=== PATIENT | male | born 1955 | race African-American/Black ===

== ENCOUNTER 2018-11-02 11:27 | Inpatient (IN) | payer MEDICAID, OTHER ==
[~2018-11-02] VITALS: Ht 167.6 cm; Wt 113.4 kg
[2018-11-02 11:39] VITALS: BP 143/95
--- NOTE | 2018-11-02 11:40 | NUR ---
ED Nurse Note: pt walked in to ED due to continous cp that started about 1 week ago. per pt, had intermittent cp for last 2 yrs. pt appears to be SOB and per pt, "little bit" ambulatory with steady gait. obese noted on abdomen. cp moves around the body. AAO x4. respirations even and non-labored noted. skin warm to touch. no open wound noted. ekg done at the bed side. on youth nutritional monitor. will wait for the further order.
--- NOTE | 2018-11-02 12:00 | Emergency Room Report ---
History of Present Illness General Chief Complaint: Chest Pain Source: Patient, Medical Record Present Illness HPI Patient presents with complaints of bilateral lower chest pain Reports that initially he had discomfort several days ago of the left lower chest cramping in nature Now he feels discomfort intermittently on the right side Denies any vomiting or diarrhea Also reported bilateral flank discomfort and stated that he thinks his kidneys might have problem Denies any fevers or chills denies any recent trauma Allergies: Coded Allergies: No Known Allergies (Unverified , 11/02/18) Patient History Past Medical History: see triage record Pertinent Family History: none Reviewed Nursing Documentation: PMH: Agreed; PSxH: Agreed Nursing Documentation-PMH Past Medical History: No History, Except For Hx Hypertension: Yes Hx COPD: Yes Hx Diabetes: Yes Review of Systems All Other Systems: negative except mentioned in HPI Physical Exam Vital Signs Date Time Temp Pulse Resp B/P (MAP) Pulse Ox O2 Delivery O2 Flow Rate FiO2 11/02/18 11:39 98.8 107 21 143/95 100 Room Air Sp02 EP Interpretation: reviewed, normal General Appearance: well appearing, no apparent distress Head: normocephalic, atraumatic Eyes: bilateral eye PERRL, bilateral eye EOMI ENT: hearing grossly normal, normal pharynx, TMs + canals normal, uvula midline Neck: full range of motion, supple, no meningismus, no bony tend Respiratory: lungs clear, normal breath sounds, no rhonchi, no respiratory distress, no retraction, no accessory muscle use Cardiovascular #1: normal peripheral pulses, regular rate, rhythm, no edema, no gallop, no JVD, no murmur Gastrointestinal: normal bowel sounds, non tender, soft, no mass, no organomegaly, non-distended, no guarding, no hernia, no pulsatile mass, no rebound Genitourinary: no CVA tenderness Musculoskeletal: normal inspection Neurologic: oriented x3, responsive, 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, motor strength/ tone normal, sensory intact Psychiatric: mood/affect normal Skin: normal color, no rash, warm/dry, palpation normal Lymphatic: normal inspection, no adenopathy Medical Decision Making Diagnostic Impression: Primary Impression: ACS (acute coronary syndrome) ER Course Patient is a fairly complex patient with multiple differential to consideration including but not limited to cardiac cardiopulmonary and vascular emergencies Patient does have multiple risk factors concerning for cardiac disease CT imaging shows some pathology regarding possible kidney stone however no obvious obstructive pathology Given the patient's comorbidities and presentation patient is admitted for further care Labs Test 11/02/18 12:10 11/02/18 13:19 White Blood Count 9.8 K/UL (4.8-10.8) Red Blood Count 4.74 M/UL (4.70-6.10) Hemoglobin 15.1 G/DL (14.2-18.0) Hematocrit 45.4 % (42.0-52.0) Mean Corpuscular Volume 96 FL (80-99) Mean Corpuscular Hemoglobin 31.7 PG (27.0-31.0) Mean Corpuscular Hemoglobin Concent 33.2 G/DL (32.0-36.0) Red Cell Distribution Width 12.7 % (11.6-14.8) Platelet Count 296 K/UL (150-450) Mean Platelet Volume 7.8 FL (6.5-10.1) Neutrophils (%) (Auto) 52.7 % (45.0-75.0) Lymphocytes (%) (Auto) 34.2 % (20.0-45.0) Monocytes (%) (Auto) 8.1 % (1.0-10.0) Eosinophils (%) (Auto) 4.1 % (0.0-3.0) Basophils (%) (Auto) 0.9 % (0.0-2.0) Sodium Level 140 MMOL/L (136-145) Potassium Level 4.0 MMOL/L (3.5-5.1) Chloride Level 102 MMOL/L (98-107) Carbon Dioxide Level 29 MMOL/L (21-32) Anion Gap 9 mmol/L (5-15) Blood Urea Nitrogen 13 mg/dL (7-18) Creatinine 1.2 MG/DL (0.55-1.30) Estimat Glomerular Filtration Rate > 60 mL/min (>60) Glucose Level 220 MG/DL (74-106) Calcium Level 9.2 MG/DL (8.5-10.1) Total Bilirubin 0.7 MG/DL (0.2-1.0) Aspartate Amino Transf (AST/SGOT) 16 U/L (15-37) Alanine Aminotransferase (ALT/SGPT) 48 U/L (12-78) Alkaline Phosphatase 91 U/L (46-116) Total Creatine Kinase 165 U/L (26-308) Creatine Kinase MB 1.2 NG/ML (0.0-3.6) Creatine Kinase MB Relative Index 0.7 Troponin I 0.004 ng/mL (0.000-0.056) Total Protein 7.4 G/DL (6.4-8.2) Albumin 4.0 G/DL (3.4-5.0) Globulin 3.4 g/dL Albumin/Globulin Ratio 1.2 (1.0-2.7) Lipase 99 U/L (73-393) Urine Color Yellow Urine Appearance Clear Urine pH 5 (4.5-8.0) Urine Specific [place] 1.025 (1.005-1.035) Urine Protein Negative (NEGATIVE) Urine Glucose (UA) Negative (NEGATIVE) Urine Ketones Negative (NEGATIVE) Urine Blood Negative (NEGATIVE) Urine Nitrite Negative (NEGATIVE) Urine Bilirubin Negative (NEGATIVE) Urine Urobilinogen Normal MG/DL (0.0-1.0) Urine Leukocyte Esterase 1+ (NEGATIVE) Urine RBC 0 /HPF (0 - 0) Urine WBC 0-2 /HPF (0 - 0) Urine Squamous Epithelial Cells Few /LPF (NONE/OCC) Urine Bacteria Occasional /HPF (NONE) Urine Opiates Screen Negative (NEGATIVE) Urine Barbiturates Screen Negative (NEGATIVE) Phencyclidine (PCP) Screen Negative (NEGATIVE) Urine Amphetamines Screen Negative (NEGATIVE) Urine Benzodiazepines Screen Negative (NEGATIVE) Urine Cocaine Screen Negative (NEGATIVE) Urine Marijuana (THC) Screen Positive (NEGATIVE) EKG Diagnostic Results Rate: normal Rhythm: NSR ST Segments: other - nonspecific ST/T-wave changes Rhythm Strip Diag. Results EP Interpretation: yes Rate: 66 Rhythm: NSR, no PVC's, no ectopy Chest X-Ray Diagnostic Results Chest X-Ray Diagnostic Results : Chest X-Ray Ordered: Yes # of Views/Limited/Complete: 1 View Indication: Chest Pain EP Interpretation: Yes Interpretation: no consolidation, no effusion, no pneumothorax Impression: No acute disease Electronically Signed by: Reshma St DO CT/MRI/US Diagnostic Results CT/MRI/US Diagnostic Results : Impression CT abdomen pelvisIMPRESSION: Nonobstructive stone demonstrated within the left renal pelvis injuring 7 mm. Nonobstructive stone in the lower pole calyx left kidney measuring 1 mm. Mild dilatation of the left renal pelvis and calyces with abrupt transition at the UPJ. This is either a extrarenal pelvis or a mild UPJ obstruction. A follow-up nuclear medicine renal scan may be helpful to assess for presence of functional obstruction, if present at all. Fatty liver Atherosclerotic vascular disease Small bilateral inguinal hernias containing fat. Degenerative disc disease at L5-S1 Last Vital Signs Date Time Temp Pulse Resp B/P (MAP) Pulse Ox O2 Delivery O2 Flow Rate FiO2 11/02/18 11:39 98.8 107 21 143/95 100 Room Air Status: improved Disposition: ADMITTED INPATIENT Condition: Serious NavdeepankitReshma DO Nov 02, 2018 12:00
[2018-11-02] MEDS ORDERED: METFORMIN HCL850 M1 ORAL (12:03)
[2018-11-02] MEDS ORDERED: SIMVASTATIN20 MG ORAL (12:03)
[2018-11-02] MEDS ORDERED: HYDROCHLOROTHIA25 MG ORAL (12:03)
[2018-11-02] MEDS ORDERED: QUETIAPINE FUMA50 MG ORAL (12:03)
[2018-11-02] MEDS ORDERED: ZANTAC150 MG ORAL (12:03)
[2018-11-02] MEDS ORDERED: LOSARTAN POTASS50 MG ORAL (12:03)
[2018-11-02] MEDS ORDERED: AMLODIPINE BESY10 MG ORAL (12:03)
[2018-11-02 12:18] LABS: BASOPHILS % (AUTO) 0.9 % (0.0-2.0); EOSINOPHILS % (AUTO) 4.1 % (0.0-3.0); HEMATOCRIT 45.4 % (42.0-52.0); HEMOGLOBIN 15.1 G/DL (14.2-18.0); LYMPHOCYTES % (AUTO) 34.2 % (20.0-45.0); MEAN CORPUSCULAR VOLUME 96 FL (80-99); MONOCYTES % (AUTO) 8.1 % (1.0-10.0); NEUTROPHILS % (AUTO) 52.7 % (45.0-75.0); PLATELET COUNT 296 K/UL (150-450); RED BLOOD COUNT 4.74 M/UL (4.70-6.10); RED CELL DISTRIBUTION WIDTH 12.7 % (11.6-14.8); WHITE BLOOD COUNT 9.8 K/UL (4.8-10.8)
[2018-11-02 12:30] LABS: ANION GAP 9 mmol/L (5-15); BLOOD UREA NITROGEN 13 mg/dL (7-18); CALCIUM 9.2 MG/DL (8.5-10.1); CARBON DIOXIDE 29 MMOL/L (21-32); CHLORIDE 102 MMOL/L (98-107); CREATININE 1.2 MG/DL (0.55-1.30); SODIUM 140 MMOL/L (136-145)
[2018-11-02 12:45] LABS: ALANINE AMINOTRANSFERASE 48 U/L (12-78); ALBUMIN/GLOBULIN RATIO 1.2 (1.0-2.7); ALKALINE PHOSPHATASE 91 U/L (46-116); ASPARTATE AMINO TRANSFERASE 16 U/L (15-37); BILIRUBIN,TOTAL 0.7 MG/DL (0.2-1.0); CKMB 1.2 NG/ML (0.0-3.6); CREATINE KINASE 165 U/L (26-308)
[2018-11-02 13:16] VITALS: BP 136/95
--- NOTE | 2018-11-02 13:17 | NUR ---
ED Nurse Note: urine sample sent. pt lying in bed comfortably. no facial grimacing or moaning noted. denies any pain at this time. on pvc monitor. will wait for the room to be assign.
--- NOTE | 2018-11-02 13:26 | Diagnostic Imaging Report ---
Indication: Abdominal pain Technique: Continuous helical transaxial imaging of the abdomen and pelvis was obtained from the lung bases to the pubic symphysis. No intravenous contrast was administered. Coronal 2-D reformats were also obtained. Automatic Exposure Control was utilized. Total Dose length Product (DLP): 907.[address] Dose Index Volume (CTDIvol): 16.82 mGy Comparison: none Findings: There is a trace pericardial fluid versus pericardial thickening present. Mild dependent posterior basal atelectasis noted. The liver is hypodense consistent with fatty infiltration. Gallbladder is unremarkable. There is an 8 mm nonobstructive stone demonstrated within the dependent portion of the left renal pelvis. There is minimal left hydronephrosis with a transition at the left UPJ without an obstructing stone at the UPJ. The 8 mm stone is more proximal to it and a nonobstructing location in the dependent portion of the renal pelvis. The transition at the UPJ may be incidental or congenital. There is no cortical atrophy associated with this, which is generally seen if there is chronic functional obstruction. There is a 1 mm stone in the lower pole calyx of the left kidney. There are no stones in the right kidney. Urinary bladder is unremarkable. There are bilateral inguinal hernias containing fat. The appendix is normal. Aortoiliac calcifications are present. There is no adrenal mass. There is a small umbilical hernia containing fat. Moderate disc disease at L5-S1 demonstrated with vacuum phenomenon narrowing and endplate osteophytes. Lower lumbar facet hypertrophy also noted. IMPRESSION: Nonobstructive stone demonstrated within the left renal pelvis injuring 7 mm. Nonobstructive stone in the lower pole calyx left kidney measuring 1 mm. Mild dilatation of the left renal pelvis and calyces with abrupt transition at the UPJ. This is either a extrarenal pelvis or a mild UPJ obstruction. A follow-up nuclear medicine renal scan may be helpful to assess for presence of functional obstruction, if present at all. Fatty liver Atherosclerotic vascular disease Small bilateral inguinal hernias containing fat. Degenerative disc disease at L5-S1 The CT scanner at [facility] is accredited by the [employer] and the scans are performed using dose optimization techniques as appropriate to a performed exam including Automatic Exposure control.
[2018-11-02 13:27] LABS: APPEARANCE,URINE CLEAR; BILIRUBIN, URINE NEGATIVE (NEGATIVE); GLUCOSE, URINE (UA) NEGATIVE (NEGATIVE); KETONES,URINE NEGATIVE (NEGATIVE); LEUKOCYTE ESTERASE ,URINE 1+ (NEGATIVE); NITRITE,URINE NEGATIVE (NEGATIVE); PH,URINE 5 (4.5-8.0); PROTEIN,URINE NEGATIVE (NEGATIVE); UROBILINOGEN,URINE NORMAL MG/DL (0.0-1.0)
[2018-11-02 13:36] LABS: COLOR,URINE YELLOW
--- NOTE | 2018-11-02 13:39 | Diagnostic Imaging Report ---
Indication: Chest pain Comparison: None A single view chest radiograph was obtained. Findings: Cardiomediastinal appearance is within normal limits for age. The lungs are clear. Pulmonary vascularity is appropriate. The diaphragmatic contour is smooth and costophrenic angles are sharp. No pleural effusions are identified. The bones are unremarkable. Impression: No acute findings
--- NOTE | 2018-11-02 15:23 | NUR ---
ED Nurse Note: Reports given to BASIL James.
--- NOTE | 2018-11-02 15:30 | NUR ---
NURSE NOTES: Received patient from ER from BASIL Bearden. Patient is AAO x4. heart monitor and v/s taken. Patient is breathing even and unlabored on RA. Patient states 1-2/10 pain for lower back. Patient denies chest pain. Will continue plan of care.
[2018-11-02] MEDS ORDERED: Nitroglycerin Subl 0.4mg tab SL PRN (15:45)
[2018-11-02 16:00] VITALS: BP 138/76
[2018-11-02] MEDS: Aspirin EC 81mg tab ORAL SCH (17:43)
[2018-11-02] MEDS: Heparin 5000 units/ml inj SUBQ SCH ×2 (17:46→20:55)
--- NOTE | 2018-11-02 19:50 | NUR ---
HAND-OFF: Report given to BASIL Marley. Patient denies pain at this time and resting comfortably in bed.
--- NOTE | 2018-11-02 19:51 | NUR ---
NURSE NOTES: Received report from BASIL James. Pt is awake and resting in bed. IV site intact and patent. Bed in lowest position, call light within reach. Will continue with plan of care.
[2018-11-02 20:00] VITALS: BP 110/88
--- NOTE | 2018-11-02 20:13 | NUR ---
CASE MANAGEMENT: REVIEW 62/M BIBA FROM HOME CC: CHEST PAIN SI: ACS . CHEST PAIN T 98.8 HR 107 RR 11 BP 143/95 SAT 100% ROOM AIR TROPONIN I 0.004 IS: PO X1 PATIENT ADMITTED TO TELEMETRY UNIT DCP: PATIENT IS FROM HOME
[2018-11-02] MEDS: NovoLOG Insulin Flexpen SUBQ SCH (20:55)
[2018-11-03] VITALS: BP 128/69
[2018-11-03 04:00] VITALS: BP 125/91
--- NOTE | 2018-11-03 06:00 | History and Physical Report ---
DATE OF ADMISSION: 11/02/2018 CHIEF COMPLAINT: Chest pain. HISTORY OF PRESENT ILLNESS: This is a pleasant 62-year-old male. He has a history of hypertensive heart disease, diabetes, and hyperlipidemia. He presented with complaints of intermittent chest pain for the last 6 months. According to the patient, he was normally getting episodes every week. The episodes last a few minutes. He describes his pain as sharp lasting several minutes on both sides of his chest. In the past, he was taking Gas-X, which seemed to relieve some of the pain. Symptoms now become more frequent and more severe and were unrelieved with Gas-X. So, he presented to the emergency room. On evaluation there, he was slightly tachycardic. Initial enzymes were negative. EKG also was unremarkable. Chest x-ray is clear. In light of the patient's multiple cardiac risk factors, he is now admitted for further evaluation of his chest pain. PAST MEDICAL HISTORY: As above. PAST SURGICAL HISTORY: Includes a surgery for a perforated bowel as a child. CURRENT MEDICATIONS: Reconciled and reviewed. ALLERGIES: None. FAMILY HISTORY: Significant for brother who of heart disease in his 50s. SOCIAL HISTORY: The patient has a 4 to 5 pack-year history of smoking, but quit a year ago. No alcohol. No drugs. REVIEW OF SYSTEMS: GENERAL: No fevers or chills. HEENT: No headaches or visual changes. CARDIOPULMONARY: Positive chest pain. No shortness of breath. GASTROINTESTINAL: No nausea or vomiting. GENITOURINARY: No urgency or frequency. MUSCULOSKELETAL: No joint pain or swelling. No evidence of seizures. PHYSICAL EXAMINATION: VITAL SIGNS: Temperature 98, pulse 107, respirations 11, and blood pressure 138/76. GENERAL: The patient is well-developed, in no apparent distress. HEART: Regular rate and rhythm. LUNGS: Clear. ABDOMEN: Soft, nontender, and nondistended. EXTREMITIES: Without clubbing, cyanosis, or edema. LABORATORY DATA: White count 9, hemoglobin 15, hematocrit 45, and platelets 296,000. Sodium 140, potassium 4.1, chloride 102, bicarb 29, BUN 13, and creatinine is 1.2. UA was clear. CT scan of the abdomen did show a kidney stone in the renal pelvis and a mild dilation of the left renal pelvis. ASSESSMENT: This is a pleasant male admitted with complaints of chest pain. 1. Chest pain, atypical. Although, the patient does have multiple cardiac risk factors including a family history, the patient has a history of hypertension, diabetes, and hyperlipidemia. PLAN: 1. Serial enzymes and EKGs. 2. Titrate antihypertensive regimen. 3. Cardiology evaluation. 4. Check a duplex of the legs. 5. We will start the patient on a PPI for acid reflux. 6. Urology consultation regarding the patient's mild dilation of his renal pelvis. Lewis George M.D. DR: JOSELYN JOB#: [id number] CC:
[2018-11-03] MEDS: NovoLOG Insulin Flexpen SUBQ SCH ×4 (06:29→20:45)
--- NOTE | 2018-11-03 07:25 | NUR ---
HAND-OFF: Report given to BASIL Holm. Endorsed plan of care.
[2018-11-03 07:37] LABS: ALANINE AMINOTRANSFERASE 38 U/L (12-78); ALBUMIN 3.6 G/DL (3.4-5.0); ALBUMIN/GLOBULIN RATIO 1.2 (1.0-2.7); ALKALINE PHOSPHATASE 82 U/L (46-116); ANION GAP 8 mmol/L (5-15); ASPARTATE AMINO TRANSFERASE 18 U/L (15-37); BILIRUBIN,TOTAL 0.4 MG/DL (0.2-1.0); BLOOD UREA NITROGEN 15 mg/dL (7-18); CARBON DIOXIDE 30 MMOL/L (21-32); CHLORIDE 104 MMOL/L (98-107); CHOLESTEROL 171 MG/DL (< 200); CREATININE 1.2 MG/DL (0.55-1.30); HDL CHOLESTEROL 31 MG/DL (40-60); POTASSIUM 4.4 MMOL/L (3.5-5.1); SODIUM 141 MMOL/L (136-145); TRIGLYCERIDES 246 MG/DL (30-150)
[2018-11-03 08:00] VITALS: BP 124/94
--- NOTE | 2018-11-03 08:00 | NUR ---
NURSE NOTES: Pt awake/alert in bed, breathing easily on room air, denies SOB and denies pain at this time. Vital signs stable with SR @ 103 on monitor. IV access Right a/c, flushed with 10 ml NS and locked. Bed left in low position, side rails up x 2 and call light left near pt's hand.
[2018-11-03] MEDS: Aspirin EC 81mg tab ORAL SCH (09:00)
[2018-11-03] MEDS: Losartan 50mg tab ORAL SCH (09:01)
[2018-11-03] MEDS: Heparin 5000 units/ml inj SUBQ SCH ×2 (09:06→20:44)
--- NOTE | 2018-11-03 09:48 | Physician Query ---
Patient admitted with glucose of 220/214 Diabetes documented in the history and physical. Please specify type as: Type I or Juvenile Type II Poorly controlled Inadequately controlled Out of control Present on Admission: Yes(Y) Clinically Undeterminable(W) No(N) PHYSICIAN QUERY FORM DIABETES MTDD
--- NOTE | 2018-11-03 10:17 | Physician Query ---
--------- THIS DOCUMENT IS A PERMANENT PART OF THE MEDICAL RECORD --------- PLEASE COMPLETE DOCUMENT BEFORE SIGNING Dear Jennifer Huerta Date: ___11/03/2018 ____ [facility] Name: Sary Rodriguez [facility] Phone No.: [phone] Exercise your independent professional judgment when responding to the query. Questions asked do not imply a particular answer is desired or expected. We greatly appreciate your clarification on this issue. CLINICAL DOCUMENTATION STATES: Era with complaints of chest pain, CLINICAL FINDINGS SHOW: CT of abdominal/pelvis- Nonobstructing stone within the left renal pelvis injury 7mm. Nonobstructing stone of lower pole calyx measuring 1mm. Fatty liver, small bilateral inguinal hernia containing fat. Please respond to the following question: Is there a diagnosis specific to these symptoms or values? If so please state below. PHYSICIAN RESPONSE: Condition Present on Admission: [] Yes [] No []Clinically Undeterminable Please also document in your Progress Notes and/or Discharge Summary and indicate if the condition was present on admission. MTDD
[2018-11-03 12:00] VITALS: BP 134/84
--- NOTE | 2018-11-03 13:25 | General Progress Note ---
Assessment/Plan Problem List: (1) ACS (acute coronary syndrome) ICD Codes: I24.9 - Acute ischemic heart disease, unspecified SNOMED: 105067937 Status: stable Assessment/Plan bp rx antiplt check duplex cards eval statin Subjective ROS Limited/Unobtainable: No Constitutional: Reports: no symptoms HEENT: Reports: no symptoms Cardiovascular: Reports: chest pain Respiratory: Reports: no symptoms Gastrointestinal/Abdominal: Reports: no symptoms Genitourinary: Reports: no symptoms Neurologic/Psychiatric: Reports: no symptoms Endocrine: Reports: no symptoms Hematologic/Lymphatic: Reports: no symptoms Allergies: Coded Allergies: No Known Allergies (Unverified , 11/02/18) All Systems: reviewed and negative except above Subjective c/o muscle spasms back. no cp. Objective Last 24 Hour Vital Signs Date Time Temp Pulse Resp B/P (MAP) Pulse Ox O2 Delivery O2 Flow Rate FiO2 11/03/18 12:00 122 11/03/18 12:00 97.3 122 23 134/84 (101) 96 11/03/18 09:01 124/94 11/03/18 09:01 98 124/94 11/03/18 09:00 Room Air 11/03/18 08:00 98.0 106 23 124/94 (104) 95 11/03/18 08:00 98 11/03/18 04:00 97.8 97 22 125/91 (102) 93 11/03/18 04:00 97 11/03/18 00:00 98.3 111 20 128/69 (88) 94 11/03/18 00:00 111 11/02/18 21:00 Room Air 11/02/18 20:00 98.0 107 20 110/88 (95) 95 11/02/18 20:00 107 11/02/18 16:00 97.9 99 16 138/76 (96) 94 11/02/18 15:59 100 11/02/18 15:58 Room Air 11/02/18 15:22 98.0 102 15 126/99 100 Room Air Intake and Output 11/02/18 11/03/18 18:59 06:59 Intake Total 360 ml 240 ml Balance 360 ml 240 ml Intake Oral 360 ml 240 ml # Voids 2 2 Laboratory Tests 11/03/18 06:10: Sodium Level 141, Potassium Level 4.4, Chloride Level 104, Carbon Dioxide Level 30, Anion Gap 8, Blood Urea Nitrogen 15, Creatinine 1.2, Estimat Glomerular Filtration Rate > 60, Glucose Level 214H, Calcium Level 9.0, Total Bilirubin 0.4 , Aspartate Amino Transf (AST/SGOT) 18, Alanine Aminotransferase (ALT/SGPT) 38, Alkaline Phosphatase 82, Troponin I 0.007, Total Protein 6.6, Albumin 3.6, Globulin 3.0, Albumin/Globulin Ratio 1.2, Triglycerides Level 246H, Cholesterol Level 171, LDL Cholesterol 101H, HDL Cholesterol 31L, Cholesterol/HDL Ratio 5.5H , Thyroid Stimulating Hormone (TSH) 1.421 Height (Feet): 5 Height (Inches): 6.00 Weight (Pounds): 250 General Appearance: WD/WN, alert Neck: supple Cardiovascular: normal peripheral pulses, normal rate, regular rhythm Respiratory/Chest: chest wall non-tender, lungs clear, normal breath sounds, no respiratory distress Abdomen: normal bowel sounds, non tender, soft, no organomegaly Edema: no edema noted Arm (L), no edema noted Arm (R), no edema noted Leg (L), no edema noted Leg (R), no edema noted Pedal (L), no edema noted Pedal (R), no edema noted Generalized Lewis George MD Nov 03, 2018 13:25
[2018-11-03] MEDS: Acetaminophen 500mg (ES) tab ORAL PRN (15:55)
[2018-11-03 16:00] VITALS: BP 117/80
[2018-11-03] MEDS ORDERED: Lexiscan 0.4mg/5ml syringe IV SCH (16:45)
[2018-11-03] MEDS: Metoprolol Succinate XL 25mg tab ORAL SCH (17:05)
--- NOTE | 2018-11-03 17:17 | NUR ---
CASE MANAGEMENT: REVIEW SI: ACS . CHEST PAIN T 97.3 HR 122 RR 23 BP 134/84 SAT 96% ROOM AIR TRIGLYCERIDES 246 LDL 101 HDL 31 IS: LEXISCAN IV X1 LIPITOR PO QHS COZAAR PO QD NPO TELEMETRY UNIT STATUS DCP: PATIENT IS FROM HOME
[2018-11-03] MEDS ORDERED: metFORMIN 500mg tab ORAL SCH (18:00)
--- NOTE | 2018-11-03 19:20 | NUR ---
NURSE NOTES: Got report from Mihai RN. Pt in stable condition. Denies any pain. No s/s of distress noted. Pt resting in bed comfortably.n Bed in low and locked position, call light within reach, bedside table within reach. continue to monitor.
[2018-11-03 20:00] VITALS: BP 121/91
[2018-11-03] MEDS: Atorvastatin 20mg tab ORAL SCH (20:42)
--- NOTE | 2018-11-03 23:15 | Progress Note ---
DATE: 11/03/2018 CARDIOLOGY PROGRESS NOTE SUBJECTIVE: The patient notes no chest pain today. He did have discomfort yesterday. He notes back pain today. OBJECTIVE: VITAL SIGNS: Blood pressure 134/84, heart rate 98 to 122, respiratory rate 23, and afebrile. Echocardiogram revealed normal ejection fraction. NECK: Supple. LUNGS: Clear. CARDIAC: Regular rhythm and rate. Normal S1, S2 with no murmur. ABDOMEN: Soft. EXTREMITIES: No edema. Monitor sinus and sinus tachycardia. LABORATORY DATA: Labs notable for troponins negative x2. Total cholesterol 171. Triglyceride 246. TSH 1.4. Glucose 214. IMPRESSION: 1. Acute coronary syndrome. 2. Diabetes mellitus, poorly controlled. 3. Paroxysmal sinus tachycardia. PLAN: 1. Titrate metformin. 2. Titrate antianginals. 3. Continue anti-platelet therapy and statin drug. 4. Add beta-yaw. 5. Myocardial perfusion scan with pharmacological stress to follow. Karl Mehta M.D. DR: DEJA JOB#: [id number] CC:
[2018-11-04] VITALS: BP 125/86
[2018-11-04 04:20] VITALS: BP 135/70
[2018-11-04] MEDS: NovoLOG Insulin Flexpen SUBQ SCH ×4 (06:03→20:53)
--- NOTE | 2018-11-04 07:05 | NUR ---
HAND-OFF: Report given to Abhay GRACIA. Endorsed plan of care.
--- NOTE | 2018-11-04 07:06 | NUR ---
NURSE NOTES: pt awake alert, no distress. no sob. no c/o pain. call light within reach. will monitor.
[2018-11-04 07:52] VITALS: BP 118/81
[2018-11-04] MEDS: Metoprolol Succinate XL 25mg tab ORAL SCH (08:21)
[2018-11-04] MEDS: Losartan 50mg tab ORAL SCH (08:23)
[2018-11-04] MEDS: Aspirin EC 81mg tab ORAL SCH (08:23)
[2018-11-04] MEDS: Heparin 5000 units/ml inj SUBQ SCH ×2 (08:25→20:51)
[2018-11-04] MEDS: metFORMIN 500mg tab ORAL SCH ×2 (08:25→17:13)
[2018-11-04] MEDS: Acetaminophen 500mg (ES) tab ORAL PRN (08:53)
--- NOTE | 2018-11-04 09:01 | NUR ---
NURSE NOTES: pt c/o bilateral flank cramps, tylenol 500mg prn given will monitor effectiveness Dr George made aware of this complaint also pt requested for seroquel to be nightly instead of daily, md webster
[2018-11-04 11:46] VITALS: BP 128/78
[2018-11-04] MEDS: Cyclobenzaprine 10mg Tab ORAL SCH ×2 (14:18→17:13)
--- NOTE | 2018-11-04 15:23 | NUR ---
CASE MANAGEMENT: REVIEW 11/04/2018 SI: ACS. CHEST PAIN. T 97.5 HR 100 RR 18 B/P 128/78 SATS 99% ON RA NO LABS TODAY IS:LIPITOR PO QHS METFORMIN PO BID NORVASC PO QD HCTZ PO QD COZAAR PO QD ASA PO QD METOPROLOL PO QD INSULIN ASPART SUBQ AC/HS TELEMETRY UNIT STATUS DCP: PATIENT IS FROM HOME
[2018-11-04 17:00] VITALS: BP 121/90
--- NOTE | 2018-11-04 18:45 | Progress Note ---
DATE: 11/04/2018 SUBJECTIVE: There have been no overnight events. The patient continues to complain of spasms in his back. Denies any chest pain or shortness of breath. OBJECTIVE: VITAL SIGNS: Temperature 97.5 degrees, pulse 100, respirations 18, and blood pressure 128/78. GENERAL: The patient is no apparent distress. HEART: Regular rate and rhythm. LUNGS: Clear. ABDOMEN: Soft. EXTREMITIES: Without clubbing or cyanosis. LABORATORY DATA: None. ASSESSMENT: This is a pleasant male with history of hypertension, diabetes, hyperlipidemia who presents with complaint of chest pain. Chest pain has now resolved. PLAN: 1. Antiplatelet therapy. 2. Muscle relaxants for back spasm. 3. Check lumbar x-ray. 4. Stress test tomorrow. 5. Discharge planning if stress test is normal. Lewis George M.D. DR: Andreia JOB#: [id number] CC:
--- NOTE | 2018-11-04 19:09 | NUR ---
HAND-OFF: Report given to LUIZ GRACIA.
--- NOTE | 2018-11-04 19:10 | NUR ---
NURSE NOTES: Got report from Abhay GRACIA. Pt in stable condition. Denies any pain. No s/s of distress noted. Pt resting in bed comfortably. Bed in low and locked position, call light within reach, bedside table within reach. continue to monitor. Addendum: 11/05/18 at 0027 by Noé Bustos RN Pt aware that he has to be NPO after midnight for Stress Test procedure on Monday November 05, 2018.
[2018-11-04 20:00] VITALS: BP 137/84
[2018-11-04] MEDS: Atorvastatin 20mg tab ORAL SCH (20:50)
[2018-11-05] VITALS: BP 111/78
--- NOTE | 2018-11-05 04:00 | Progress Note ---
DATE: 11/04/2018 CARDIOLOGY PROGRESS NOTE SUBJECTIVE: The patient has no new complaints other than back pain. No chest pain today. OBJECTIVE: VITAL SIGNS: Afebrile, blood pressure 128/78, pulse 100, and respiratory rate 18. LUNGS: Clear. CARDIAC: Regular. Normal S1 and S2. ABDOMEN: Soft. EXTREMITIES: No edema. IMPRESSION: 1. Anginal syndrome. 2. Hypertension. 3. Paroxysmal tachycardia. 4. Type 2 diabetes mellitus. 5. Hyperlipidemia. PLAN: 1. Continue anti-platelet therapy. 2. Optimize antianginal and antihypertensive regimen in view of risk factors for premature coronary disease and presenting symptoms. 3. Myocardial perfusion scan with Lexiscan stress is planned. Karl Mehta M.D. DR: MITZI JOB#: [id number] CC:
[2018-11-05 04:20] VITALS: BP 110/72
[2018-11-05] MEDS: NovoLOG Insulin Flexpen SUBQ SCH ×3 (06:03→17:31)
[2018-11-05] MEDS ORDERED: Lexiscan 0.4mg/5ml syringe IV PRN (07:00)
--- NOTE | 2018-11-05 07:10 | NUR ---
NURSE NOTES: RECEIVED BED SIDE REPORT FROM [employer]IN [employer] EXCELLENCE LEADER OF NOC SHIFT .PT RECEIVED IN BED RESTING COMFORTABLY DENIES CP OR SOB AT THIS TIME.PT IS NPO SCHEDULE FOR CARDIAC STRESS TEST THIS AM.HELD ALL BETA LUCIO MED,S AT THIS TIME.WILL CONT TO MONITOR.
[2018-11-05 08:00] VITALS: BP 118/81
[2018-11-05] MEDS: Aspirin EC 81mg tab ORAL SCH (09:00)
[2018-11-05] MEDS: Cyclobenzaprine 10mg Tab ORAL SCH ×3 (09:00→18:05)
[2018-11-05] MEDS: metFORMIN 500mg tab ORAL SCH ×2 (10:51→18:05)
[2018-11-05] MEDS: Heparin 5000 units/ml inj SUBQ SCH (10:59)
--- NOTE | 2018-11-05 11:23 | General Progress Note ---
Assessment/Plan Problem List: (1) ACS (acute coronary syndrome) ICD Codes: I24.9 - Acute ischemic heart disease, unspecified SNOMED: [id number] Status: stable, progressing Assessment/Plan bp rx antiplt duplex negative cards eval appreciated statin Subjective ROS Limited/Unobtainable: No Constitutional: Reports: malaise, weakness HEENT: Reports: no symptoms Cardiovascular: Reports: no symptoms Respiratory: Reports: no symptoms Gastrointestinal/Abdominal: Reports: no symptoms Genitourinary: Reports: no symptoms Neurologic/Psychiatric: Reports: no symptoms Endocrine: Reports: no symptoms Hematologic/Lymphatic: Reports: no symptoms Allergies: Coded Allergies: No Known Allergies (Unverified , 11/02/18) All Systems: reviewed and negative except above Subjective c/o muscle spasms back. no chest pain waiting for stress test. Objective Last 24 Hour Vital Signs Date Time Temp Pulse Resp B/P (MAP) Pulse Ox O2 Delivery O2 Flow Rate FiO2 11/05/18 08:00 98.1 104 18 118/81 (93) 95 11/05/18 04:28 101 11/05/18 04:20 98.4 100 16 110/72 (85) 98 11/05/18 00:36 109 11/05/18 00:00 97.5 100 18 111/78 (89) 98 11/04/18 21:00 Room Air 11/04/18 20:49 97.5 11/04/18 20:00 98.0 97 19 137/84 (101) 99 11/04/18 20:00 94 11/04/18 17:00 97.5 97 18 121/90 (100) 99 11/04/18 15:36 98 11/04/18 11:59 98 11/04/18 11:46 97.5 100 18 128/78 (95) 99 Intake and Output 11/04/18 11/05/18 19:00 07:00 Intake Total 720 ml Balance 720 ml Intake Oral 720 ml # Voids 3 2 # Bowel Movements 1 Height (Feet): 5 Height (Inches): 6.00 Weight (Pounds): 250 General Appearance: WD/WN, alert Neck: supple Cardiovascular: normal rate, regular rhythm Respiratory/Chest: chest wall non-tender, lungs clear, normal breath sounds Abdomen: normal bowel sounds, non tender, soft, no organomegaly Edema: no edema noted Arm (L), no edema noted Arm (R), no edema noted Leg (L), no edema noted Leg (R), no edema noted Pedal (L), no edema noted Pedal (R), no edema noted Generalized Lewis George MD Nov 05, 2018 11:23
[2018-11-05 12:00] VITALS: BP 130/99
--- NOTE | 2018-11-05 12:53 | Cardiology Report ---
APPROVED REPORT EKG Measurement Heart [id number] Sinus tachycardia Low voltage QRS Borderline ECG
--- NOTE | 2018-11-05 14:26 | Cardiology Report ---
APPROVED REPORT EXAM: Two-dimensional and M-mode echocardiogram with Doppler and color Doppler. INDICATION Coronart artery disease M-Mode DIMENSIONS Left Atrium (MM)2.9 (1.6-4.0cm) Aortic Root3.5 (2.0-3.7cm) Aortic Cusp Exc.2.0 (1.5-2.0cm) Technically difficult study due to poor acoustic windows. Study quality precludes accurate assessment of regional wall motion. M-mode measurements of left ventricle not obtainable due to cardiac position (angle). Normal left ventricular chamber size, systolic function and wall motion to extent visualized. Left ventricular ejection fraction estimated to be 55 %. There appears to be no evidence of left ventricular hypertrophy. Anterior Echo-free space, may be due to pericardial fat or effusion. All other cardiac chamber sizes are within normal limits. Focal aortic valve sclerosis with adequate cusp excursion. Thickened mitral valve leaflets with normal excursion. Mild mitral annulus and aortic root calcification. Pulmonic valve not well visualized. Normal tricuspid valve structure. IVC is normal in size with physiological collapse. A color flow and spectral Doppler study was performed and revealed: No aortic insufficiency. No mitral regurgitation. Mitral diastolic velocities suggest mild left ventricular diastolic dysfunction (Grade I). No tricuspid regurgitation. Tricuspid systolic velocities suggests peak right ventricular systolic pressure of 8 mmHg. No pulmonic regurgitation present.
[2018-11-05] MEDS: Metoprolol Succinate XL 25mg tab ORAL SCH (14:46)
[2018-11-05] MEDS: Losartan 50mg tab ORAL SCH (14:46)
--- NOTE | 2018-11-05 15:39 | Diagnostic Imaging Report ---
Indications: Chest pain Technique: Single day single isotope protocol utilized. Initially, resting images obtained using IV administration 10.5 millicuries 99M technetium Myoview. Subsequently, patient underwent lexiscan stress testing. See cardiology report for details. During adenosine infusion, IV administration 32.3 mCi 99 M technetium Myoview. SPECT and planar images obtained. SPECT images gated to 8 phases of the cardiac cycle were also obtained, and reformatted into cine images for evaluation of ejection fraction. Comparison: none Findings: Presence or absence of symptoms during infusion is not described and cardiology report. Per cardiology report, resting EKG demonstrates sinus tachycardia with left axis deviation. Presence or absence of ST changes during infusion is not described. Imaging demonstrates normal poststress perfusion. No fixed nor reversible post stress perfusion defects.. Calculated post stress ejection fraction 56%. Gated images demonstrate no evidence of focal wall motion abnormality Impression: Nonischemic clinical response to pharmacologic stress, per cardiology report Nonischemic electrocardiographic response to pharmacologic stress, per cardiology report No imaging findings to suggest ischemia, at level of stress achieved. Calculated post stress ejection fraction 56%
[2018-11-05 16:00] VITALS: BP 129/93
--- NOTE | 2018-11-05 16:22 | Diagnostic Imaging Report ---
Indication: Lower back pain Technique: 4 views of the lumbar spine Comparison: None Findings: There is marked degenerative disc narrowing and proliferative change at L5-S1. There is slight anterior offset of L4-5 on S1. There is vacuum formation. The remaining disc spaces are preserved. The vertebral body heights are preserved. No acute fractures. No dislocations. There is bilateral lower lumbar facet arthrosis. Degenerative changes of the left hip are incidentally noted. The sacral arches are preserved. Sacroiliac joint spaces are preserved Impression: Degenerative changes as described. No acute bony trauma
--- NOTE | 2018-11-05 16:45 | Diagnostic Imaging Report ---
APPROVED REPORT CPT Code: 28020 Present Symptoms Lower Extremity Pain: Bilateral BILATERAL: Imaging reveals a patent deep venous system bilaterally. There is no evidence of thrombus within the femoral, popliteal or tibial segments. The greater saphenous veins are also within normal limits. Doppler indicates normal spontaneous flow within these segments.
--- NOTE | 2018-11-05 18:58 | NUR ---
NURSE NOTES: RECEIVED A TELEPHONE ORDERS FROM DR PERRY TO DISCHARGE PT HOME THIS EVENING,KETAN GRACIA IN CHARGE MADE AWARE AND NOTIFIED.
--- NOTE | 2018-11-05 19:03 | NUR ---
HAND-OFF: Report given to .CHELY GRACIA.
--- NOTE | 2018-11-05 19:07 | NUR ---
NURSE NOTES: Report received from Karli Multani RN. Pt is sitting up at bedside in stable condition. Per Karli Multani, MD Morales and MD George cleared patient for discharge. Regarding d/c medications, MD George received pharmacy information from patient ([facility] & , ) and will send rx for patient to pharmacy. Pt to f/u with MD George as outpatient within 7 days from discharge. Pt is awake, alert, and oriented x4. Pt is on room air and breathing is even and unlabored. No acute distress noted. IV site is R AC #20g and is noted to be asymptomatic, patent, and intact. Bed is in lowest position with brake engaged and side rails up x2. Call light and side table placed within reach. Will continue to monitor and complete discharge assessment.
--- NOTE | 2018-11-05 20:00 | NUR ---
NURSE NOTES: No pharmacy receipt strip in patient chart or with patient in order to picking supervisor patient personal medications from pharmacy. Pharmacist Brandt Strauss notified and aware. RN signed with pharmacist for medication picking supervisor. Medications provided to patient upon discharge. ABRIL Wheat, aware of situation.
--- NOTE | 2018-11-05 20:05 | NUR ---
NURSE NOTES: Pt discharged home via private vehicle per MD George. Pt is in stable condition upon discharge. Pt is awake, alert, and oriented x4. Pt is on room air and breathing is even and unlabored. No acute distress noted. Pt denies pain at this time. Pt independently ambulatory with steady gait. Pt provided packet and discharge instructions upon discharge. Belongings list checked and signed with patient at bedside. Pt sent home with $121 (6 x $20, 1 x $1) in luz, counted with patient and witnessed by BASIL Baig at bedside. monitoring analyst, IV site, and ID band removed. Pt advised to f/u with primary MD within 1 week of discharge and call 911 or go to nearest emergency room if symptoms reoccur or if they experience new onset of symptoms. Pt verbalized understanding. Pt escorted to private vehicle by this RN.
--- NOTE | 2018-11-06 02:00 | Progress Note ---
DATE: 11/05/2018 CARDIOLOGY PROGRESS NOTE SUBJECTIVE: The patient has no new complaints. Completed myocardial perfusion scan with Lexiscan stress and was negative for ischemia with normal ejection fraction noted. OBJECTIVE: VITAL SIGNS: Blood pressure range 118/81 to 130/99 and heart rate 97 to 114. LUNGS: Clear. CARDIAC: Regular. ABDOMEN: Soft. EXTREMITIES: No edema. IMPRESSION: 1. Hypertensive heart disease. 2. No evidence of flow-limiting coronary artery disease. 3. Secondary sinus tachycardia. 4. Psych disorder. 5. Type 2 diabetes mellitus. PLAN: 1. Discontinue thiazide diuretic. 2. Advance beta-yaw and losartan. 3. Remainder of cardiovascular regimen without change including low-dose aspirin and statin drugs. Karl Mehta M.D. DR: LEONOR JOB#: [id number] CC:
[2018-11-06] MEDS ORDERED: Losartan 50mg tab ORAL SCH (09:00)
[2018-11-06] MEDS ORDERED: Metoprolol Succinate XL 50mg tab ORAL SCH (09:00)
--- NOTE | 2018-11-07 03:15 | Consultation ---
DATE OF CONSULTATION: 11/02/2018 CARDIOLOGY CONSULTATION CONSULTING PHYSICIAN: Karl Mehta M.D. REQUESTING PHYSICIAN: Lewis George M.D. REASON FOR CONSULTATION: Chest pain. HISTORY OF PRESENT ILLNESS: This is a 62-year-old male with multiple risk factors for premature and accelerated atherosclerosis. He presented to the hospital with intermittent chest pain for the last six months. It is unclear why he presented to the hospital specifically today rather than description of a more severe episode than usual. The pain is on both sides of his chest and "taking his breath away." The patient noted some relief in the past with Gas-X, but not today. The patient was seen in the emergency room. His initial troponin level was negative. His EKG revealed sinus tachycardia with low voltage. PAST MEDICAL HISTORY: History of abdominal surgery for perforated bowel, hypertension, type 2 diabetes mellitus, hyperlipidemia, and chronic obstructive pulmonary disease. CURRENT MEDICATIONS: Reviewed and reconciled. ALLERGIES: None known. SOCIAL HISTORY: No alcohol. No substance abuse. Positive smoking history. Recently quit. FAMILY HISTORY: Father at age 50s of a heart attack. REVIEW OF SYSTEMS: A 10-point review of systems performed all systems negative other than noted above. PHYSICAL EXAMINATION: VITAL SIGNS: Blood pressure 138/76, pulse 107, respirations 12, and afebrile. HEENT: Conjunctivae are pink. Oropharynx clear. NECK: Supple. No bruits. Jugular venous pressure normal. LUNGS: Clear. CARDIAC: Regular rhythm. Rapid rate. Normal S1, S2 with no murmur, rub, or gallop. ABDOMEN: Soft and nontender. No guarding or rebound. EXTREMITIES: Good pulses. No edema. LABORATORY AND DIAGNOSTIC DATA: Laboratories reviewed. A CAT scan notable for kidney stone on the left. IMPRESSION: 1. Possible acute coronary syndrome in the setting of multiple risk factors (at least four) for premature and accelerated coronary artery disease. 2. Hypertensive heart disease. 3. Sinus tachycardia. 4. Type 2 diabetes mellitus. 5. History of hyperlipidemia. 6. Nephrolithiasis. PLAN: 1. Cardiac monitoring. 2. Anti-platelet therapy. 3. Beta-blockade. 4. Titration of antianginal drugs. 5. Check lipid panel. 6. Serial troponin levels. 7. He will likely need noninvasive assessment of coronary flow reserve. Karl Corie Mehta DR: LEONOR JOB#: [id number] CC:
--- NOTE | 2018-11-10 13:40 | NUR ---
CASE MANAGEMENT: CM review and clinical information (face sheet/ DC summary/ ER MD notes/ H&P) faxed to [facility] @ [phone] and [facility] @ [phone]. REF# [id number]
--- NOTE | 2018-11-15 13:22 | Discharge Summary ---
Discharge Summary Discharge Summary _ DATE OF ADMISSION: 11/02/2018 DATE OF DISCHARGE: 11/05/2018 DISCHARGED BY: Dr. Lewis George CONSULTANTS: Dr. Karl Mehta BRIEF HOSPITAL COURSE: Patient is a 62-year-old male, with history of hypertensive heart disease, diabetes and hyperlipidemia. He presented with complaints of intermittent chest pain for the last 6 months. According to the patient, he was normally getting episodes every week. The recent episode lasted a few minutes. Pain was sharp and lasted several minutes and radiated to both sides of the chest. In the past, he was taking Gas-X, which seemed to relieve the pain. Symptoms however became more frequent and more severe and was unrelieved with Gas-X. He then presented to ER for further evaluation. On evaluation at ED, patient was slightly tachycardic. Blood work did not show any leukocytosis. Hemoglobin and hematocrit were stable. Initial cardiac enzyme negative. Urinalysis negative. Urine drug screen was positive for marijuana. EKG was unremarkable. Chest x-ray negative. CT of the abdomen and pelvis showed a nonobstructive stone in the left renal pelvis and lower pole calyx. In light of patient's multiple cardiac risk factors, he was admitted for evaluation of chest pain. Cardiac evaluation was done. He was given antiplatelet therapy and statin. TSH was normal. LDL 101. Total cholesterol 171. Cardiac enzymes were monitored. He was given beta-yaw. Echocardiogram showed ejection fraction 55%. Venous duplex scan was negative for acute DVT. Blood glucose was monitored. He was given metformin 1000 mg twice daily. Complaint of back spasms. He was given muscle relaxants. Lumbar spine x-ray did not show any dislocation or acute fractures. He completed a Lexiscan myocardial perfusion scan. Results were negative for ischemia and had normal ejection fraction. There was no evidence of flow- limiting coronary artery disease. Thiazide diuretic was discontinued. He was advised to continue low-dose aspirin and statin. Continue with beta-yaw and losartan. He was eventually discharged home. FINAL DIAGNOSES: Chest pain with anginal syndrome No evidence of flow-limiting coronary artery disease Hypertensive heart disease Secondary sinus tachycardia Type 2 diabetes mellitus Hyperlipidemia Nonobstructive left kidney stone DISPOSITION: Patient was discharged home. DISCHARGE INSTRUCTIONS: Follow-up in a week. I have been assigned to complete a discharge summary on this account, I was not involved with the patient's management. Jenny Kelsey [employer]PORATE LICENSED BROKER Nov 15, 2018 13:22
== END 2018-11-05 20:05 | disposition home or self-care (01) | DRG 198 ==
LOC: EMR 12:02 → 2E 14:20 → EDBEDREQ 14:44
DX: I20.9 Angina pectoris, unspecified (principal); E11.65 Type 2 diabetes mellitus with hyperglycemia; I11.9 Hypertensive heart disease without heart failure; Z87.891 Personal history of nicotine dependence; E78.5 Hyperlipidemia, unspecified; E11.9 Type 2 diabetes mellitus without complications; I47.9 Paroxysmal tachycardia, unspecified; N20.0 Calculus of kidney; R00.0 Tachycardia, unspecified; Z68.41 Body mass index [BMI] 40.0-44.9, adult
CPT/HCPCS: 36415; 71045; 72110; 74176; 78452; 80053; 80061; 80307; 81003; 82550; 82553; 82962; 83690; 84443; 84484; 85025; 93005; 93017; 93306; 93970; 99285; J1815; J2785

== ENCOUNTER 2020-01-25 08:14 | Emergency (ER) | payer MEDICAID ==
[~2020-01-25] VITALS: Ht 167.6 cm; Wt 105.2 kg
[2020-01-25 08:14] VITALS: BP 140/93
[~2020-01-25 08:14] MED LIST: AMLODIPINE BESY10 MG ORAL; HYDROCHLOROTHIA25 MG ORAL; LOSARTAN POTASS50 MG ORAL; METFORMIN HCL850 M1 ORAL; QUETIAPINE FUMA50 MG ORAL; SIMVASTATIN20 MG ORAL; ZANTAC150 MG ORAL
--- NOTE | 2020-01-25 08:21 | Emergency Room Report ---
History of Present Illness General Chief Complaint: Back Pain-No Injury Source: Patient, EMS Present Illness HPI Patient is a 64-year-old male past medical history of obesity, COPD former smoker, diabetes and hypertension who presents to the ER complaining of left- sided flank pain. Patient states the pain began 3 days ago and was associated with hematuria which is now resolved. Patient denies any fever, chills, nausea , vomiting, diarrhea or constipation. No history of kidney stones. Patient states that he has an appointment with his doctor in 3 days but wanted to be checked out because of the persistent pain. Patient was brought in by EMS. Allergies: Coded Allergies: No Known Allergies (Unverified , 11/02/18) COVID-19 Screening Contact w/high risk pt: No Recent Travel to affected area: No Experienced COVID-19 symptoms?: No COVID-19 Testing performed EXECUTIVE DIRECTOR OF MARKETING: No Patient History Reviewed Nursing Documentation: PMH: Agreed; PSxH: Agreed Nursing Documentation-PMH Past Medical History: No History, Except For Hx Cardiac Problems: Yes Hx Hypertension: Yes Hx COPD: Yes Hx Diabetes: Yes Hx Cancer: No Hx Memory Loss: Yes Hx Headaches: Yes Hx Fatigue: Yes Review of Systems All Other Systems: negative except mentioned in HPI Physical Exam Sp02 EP Interpretation: reviewed, normal General Appearance: no apparent distress, alert, GCS 15, non-toxic Head: normocephalic, atraumatic Eyes: bilateral eye normal inspection, bilateral eye PERRL ENT: hearing grossly normal, normal pharynx, no angioedema, normal voice Neck: full range of motion, supple/symm/no masses Respiratory: chest non-tender, lungs clear, normal breath sounds, speaking full sentences Cardiovascular #1: regular rate, rhythm, no edema Gastrointestinal: normal bowel sounds, non tender, soft, non-distended, no guarding, no rebound, overweight Rectal: deferred Genitourinary: CVA tenderness (L) Musculoskeletal: back normal, normal range of motion, no calf tenderness Neurologic: alert, motor strength/tone normal, oriented x3, sensory intact, responsive, speech normal Psychiatric: no suicidal/homicidal ideation Skin: no rash Lymphatic: no adenopathy Medical Decision Making Diagnostic Impression: Primary Impression: Lymphadenopathy Additional Impression: Kidney stone ER Course Patient's labs demonstrate no significant acute abnormalities except for blood in his urine. CT demonstrates significant new lymphadenopathy. 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 I told the patient about his lymphadenopathy and told that he needs to get a referral for an oncologist for possible lymphoma or metastatic disease. I also wrote this on his discharge papers and gave him a copy of his CAT scan results. Patient demonstrated understanding. After discussing risks and benefits of further diagnostics, treatment plans, as well as indications for and risks of admission , the patient is agreeable to being discharged home. I have explained that their evaluation and treatment in the emergency department today is an important step towards them achieving better health but that their evaluation today is not intended to replace further evaluation and treatment by a physician in their local clinic. I have explained that while the current findings suggest no immediate life threatening emergency they will require further evaluation and treatment by a physician of their choice in their area. They understand that it will be necessary for them to review the final reports of their ED visit with their clinic physician. We have reviewed indications for return to the Emergency Department. I have explained that additional time may need to pass and/or additional testing as an outpatient may be necessary before a definitive diagnosis can be made. They tell me they are willing to follow up as instructed within the timeframe I recommend. They appear to understand what we discussed. Additionally they understand that if they are unable to be seen by an outpatient physician they are welcome, and in fact should, return to the Emergency Department for a repeat evaluation. The patient is stable at time of discharge. Laboratory Tests Test 01/25/20 08:20 White Blood Count 10.4 K/UL (4.8-10.8) Red Blood Count 5.12 M/UL (4.70-6.10) Hemoglobin 15.6 G/DL (14.2-18.0) Hematocrit 50.0 % (42.0-52.0) Mean Corpuscular Volume 98 FL (80-99) Mean Corpuscular Hemoglobin 30.5 PG (27.0-31.0) Mean Corpuscular Hemoglobin Concent 31.3 G/DL (32.0-36.0) L Red Cell Distribution Width 13.2 % (11.6-14.8) Platelet Count 332 K/UL (150-450) Mean Platelet Volume 7.6 FL (6.5-10.1) Neutrophils (%) (Auto) 56.4 % (45.0-75.0) Lymphocytes (%) (Auto) 29.8 % (20.0-45.0) Monocytes (%) (Auto) 9.4 % (1.0-10.0) Eosinophils (%) (Auto) 3.1 % (0.0-3.0) H Basophils (%) (Auto) 1.3 % (0.0-2.0) Prothrombin Time 10.3 SEC (9.30-11.50) Prothrombin Time INR 0.9 (0.9-1.1) Activated Partial Thromboplast Time 29 SEC (23-33) Urine Color Yellow Urine Appearance Clear Urine pH 6 (4.5-8.0) Urine Specific [place] 1.015 (1.005-1.035) Urine Protein 3+ (NEGATIVE) H Urine Glucose (UA) Negative (NEGATIVE) Urine Ketones 2+ (NEGATIVE) H Urine Blood 5+ (NEGATIVE) H Urine Nitrite Negative (NEGATIVE) Urine Bilirubin Negative (NEGATIVE) Urine Urobilinogen Normal MG/DL (0.0-1.0) Urine Leukocyte Esterase 1+ (NEGATIVE) H Urine RBC Tntc /HPF (0 - 0) H Urine WBC 2-4 /HPF (0 - 0) Urine Squamous Epithelial Cells Occasional /LPF Urine Bacteria Occasional /HPF (NONE) Sodium Level 137 MMOL/L (136-145) Potassium Level 3.9 MMOL/L (3.5-5.1) Chloride Level 100 MMOL/L (98-107) Carbon Dioxide Level 28 MMOL/L (21-32) Anion Gap 9 mmol/L (5-15) Blood Urea Nitrogen 12 mg/dL (7-18) Creatinine 1.3 MG/DL (0.55-1.30) Estimated Glomerular Filtration Rate > 60 mL/min (>60) Glucose Level 143 MG/DL (74-106) H Calcium Level 8.9 MG/DL (8.5-10.1) Total Bilirubin 0.4 MG/DL (0.2-1.0) Aspartate Amino Transferase (AST) 23 U/L (15-37) Alanine Aminotransferase (ALT) 19 U/L (12-78) Alkaline Phosphatase 98 U/L (46-116) Total Protein 7.9 G/DL (6.4-8.2) Albumin 3.8 G/DL (3.4-5.0) Globulin 4.1 g/dL Albumin/Globulin Ratio 0.9 (1.0-2.7) L Lipase 226 U/L (73-393) Disposition: HOME, SELF-CARE Condition: Stable Scripts Hydrocodone Bit/Acetaminophen 5-325* (NORCO 5-325 TABLET*) 1 Each Tablet 1 TAB ORAL Q6H PRN for FOR PAIN, #12 TAB 0 Refills Prov: Jayashree Caceres M.D. 01/25/20 Additional Instructions: The patient was provided with discharge instructions, notified to follow-up with a primary care doctor and or specialist in the next 24-48 hours, and to return to the ED if they have worsening of their symptoms. Please note that this report is being documented using [employer] technology. This can lead to erroneous entry secondary to incorrect interpretation by the dictating instrument. Jayashree Caceres M.D. Jan 25, 2020 08:21
[2020-01-25] MEDS ORDERED: Ketorolac 30mg Inj IV ONE (08:30)
[2020-01-25 08:54] LABS: APPEARANCE,URINE CLEAR; BILIRUBIN, URINE NEGATIVE (NEGATIVE); GLUCOSE, URINE (UA) NEGATIVE (NEGATIVE); KETONES,URINE 2+ (NEGATIVE); LEUKOCYTE ESTERASE ,URINE 1+ (NEGATIVE); NITRITE,URINE NEGATIVE (NEGATIVE); PH,URINE 6 (4.5-8.0); PROTEIN,URINE 3+ (NEGATIVE); UROBILINOGEN,URINE NORMAL MG/DL (0.0-1.0)
[2020-01-25 08:58] LABS: INR 0.9 (0.9-1.1)
[2020-01-25 09:01] LABS: ALANINE AMINOTRANSFERASE 19 U/L (12-78); ALBUMIN 3.8 G/DL (3.4-5.0); ALBUMIN/GLOBULIN RATIO 0.9 (1.0-2.7); ALKALINE PHOSPHATASE 98 U/L (46-116); ANION GAP 9 mmol/L (5-15); ASPARTATE AMINO TRANSFERASE 23 U/L (15-37); BILIRUBIN,TOTAL 0.4 MG/DL (0.2-1.0); BLOOD UREA NITROGEN 12 mg/dL (7-18); CALCIUM 8.9 MG/DL (8.5-10.1); CARBON DIOXIDE 28 MMOL/L (21-32); CHLORIDE 100 MMOL/L (98-107); CREATININE 1.3 MG/DL (0.55-1.30); POTASSIUM 3.9 MMOL/L (3.5-5.1); SODIUM 137 MMOL/L (136-145)
[2020-01-25 09:05] LABS: COLOR,URINE YELLOW
[2020-01-25] MEDS ORDERED: CYCLOBENZAPRINE10 MG ORAL (09:10)
[2020-01-25] MEDS ORDERED: ASPIR 8181 MG ORAL (09:10)
[2020-01-25] MEDS ORDERED: PANTOPRAZOLE SO40 MG ORAL (09:10)
[2020-01-25] MEDS ORDERED: METOPROLOL SUCC50 MG ORAL (09:10)
[2020-01-25] MEDS ORDERED: GLIPIZIDE5 MG ORAL (09:10)
[2020-01-25] MEDS ORDERED: ATORVASTATIN CA20 MG ORAL (09:10)
[2020-01-25] MEDS ORDERED: CENTRUM MEN'S1 EACH PO (09:10)
[2020-01-25] MEDS ORDERED: PROBIOTIC1 EAC5 PO (09:10)
[2020-01-25 09:11] LABS: BASOPHILS % (AUTO) 1.3 % (0.0-2.0); EOSINOPHILS % (AUTO) 3.1 % (0.0-3.0); HEMOGLOBIN 15.6 G/DL (14.2-18.0); LYMPHOCYTES % (AUTO) 29.8 % (20.0-45.0); MEAN CORPUSCULAR VOLUME 98 FL (80-99); MONOCYTES % (AUTO) 9.4 % (1.0-10.0); NEUTROPHILS % (AUTO) 56.4 % (45.0-75.0); PLATELET COUNT 332 K/UL (150-450); RED BLOOD COUNT 5.12 M/UL (4.70-6.10); RED CELL DISTRIBUTION WIDTH 13.2 % (11.6-14.8); WHITE BLOOD COUNT 10.4 K/UL (4.8-10.8)
[2020-01-25] MEDS ORDERED: NORCO 5-325 TA1 EAC1 ORAL (09:28)
[2020-01-25 09:38] VITALS: BP 140/93
== END 2020-01-25 09:39 | disposition home or self-care (01) ==
LOC: EDBD 08:14 → EMR 08:43
DX: R59.1 Generalized enlarged lymph nodes (principal); N20.0 Calculus of kidney; J44.9 Chronic obstructive pulmonary disease, unspecified; Z87.891 Personal history of nicotine dependence; E11.9 Type 2 diabetes mellitus without complications; I10 Essential (primary) hypertension
CPT/HCPCS: 36415; 74176; 80053; 81003; 83690; 85025; 85610; 85730; 96361; 96374; J1885; J7030; Z7502; 99284